=== PATIENT | female | born 1980 | race Caucasian/White ===

== ENCOUNTER 2023-06-19 20:14 | Emergency (ER) | payer OTHER, SELFPAY ==
[2023-06-19 20:21] VITALS: BP 128/72; PULSE 81; RESP 18; TEMP 37.2; O2SAT 98; BMI 25.0
[2023-06-19] MEDS: PROPARACAINE 0.5% OPHTH SOL 2 DROPS EYE-RIGHT (20:35)
[2023-06-19] MEDS: FLUORESCEIN 1 MG STRIP EYE-RIGHT (20:35)
--- NOTE | 2023-06-19 20:37 | PC.NURSE ---
Pt states she took 2 extra strength tylenol around 1700 today. Injury occurred 1500 today.
--- NOTE | 2023-06-19 20:58 | ED_ITS ---
HPI - General Adult General Chief complaint: Eye Problems Stated complaint: rt eye inj Time Seen by Provider: 06/19/23 20:47 Source: patient Mode of arrival: Ambulatory History of Present Illness HPI narrative: 42-year-old female. Does not wear glasses or contacts. Did have OH K greater than 10 years ago who is here for evaluation of an injury to her right eye. She states that she was bending over and accidentally got poked in the right eye with a plant. He has had pain and watering and irritation since then. Related Data Previous Rx's Medication Instructions Recorded erythromycin 5 mg/gram (0.5 %) eye 0.5 inch EYE-RIGHT TID #3.5 grams 06/19/23 ointment Allergies Allergy/AdvReac Type Severity Reaction Status Date / Time No Known Drug Allergies Allergy Verified 06/19/23 20:20 Review of Systems ENT Ears, Nose, Mouth, and Throat: Reports system reviewed and no additional complaints, except as documented Integumentary/Breasts Skin/Breast: Reports system reviewed and no additional complaints, except as documented Neurologic Neurologic: Reports system reviewed and no additional complaints, except as documented Patient History Social History Smoking Status: Never smoker Smoking Status: Never smoker alcohol intake frequency: holidays/special occasions only Substance Use Type: does not use Exam Initial Vital Signs Initial Vital Signs: Vital Signs Temperature 99 F 06/19/23 20:21 Pulse Rate 81 06/19/23 20:21 Respiratory Rate 18 06/19/23 20:21 Blood Pressure 128/72 06/19/23 20:21 Pulse Oximetry 98 06/19/23 20:21 Oxygen Delivery Method Room Air 06/19/23 20:21 Eyes Eyelids: eyelids normal Conjunctivae: conjunctivae normal Sclera: scleral abnormality right scleral injection diffuse; without foreign bodies and without hemorrhages Cornea: corneas abnormal on the right fluorescein used and abrasion central and fluorescein used Pupils: PERRL EOM: EOM intact bilaterally Skin General: no rashes or lesions noted Course Orders Ordered: Discontinued Medications Erythromycin (Erythromycin Ophth 1 Gm Oint) 1 applic EYE-RIGHT NOW ONE Stop: 06/19/23 20:59 Last Admin: 06/19/23 21:02 Dose: 1 applic Documented By: AB Fluorescein Sodium (Fluorescein 1 Mg Strip) 1 mg EYE-RIGHT NOW ONE Stop: 06/19/23 20:30 Last Admin: 06/19/23 20:35 Dose: 1 mg Documented By: AB Proparacaine HCl (Proparacaine 0.5% Ophth Gretchen) 2 drops EYE-RIGHT NOW ONE Stop: 06/19/23 20:29 Last Admin: 06/19/23 20:35 Dose: 1 drop Documented By: AB Vital Signs Vital signs: Vital Signs - 8 hr 06/19/23 20:21 06/19/23 21:05 Temperature 99 F Pulse Rate 81 74 Respiratory Rate 18 16 Blood Pressure 128/72 116/67 Pulse Oximetry 98 99 Oxygen Delivery Method Room Air Room Air Medical Decision Making MDM Narrative Medical decision making narrative: No foreign body noted with exam of the right eye. Pupils were round. Low susp icion for open globe. Does have findings consistent with a corneal abrasion in the mid visual axis of the right eye. Patient states that her symptoms are much better after the proparacaine. Will place on erythromycin ointment. She was given a dose here and a prescription was sent to the pharmacy of her choice. She was given return precautions and follow-up instructions. She expressed understanding and agreement. Discharge Plan Departure Patient Disposition: Home Clinical Impression: Corneal abrasion Instructions: DI for Corneal Abrasion Activity Restrictions/Additional Instructions: Use the erythromycin ointment 3 times a day as directed. Recommend that you contact your primary care doctor for a follow-up. Return to the emergency department for new or worsening symptoms. Prescriptions: New erythromycin 5 mg/gram (0.5 %) ointment 0.5 inch EYE-RIGHT TID Qty: 3.5 2RF Referrals: Kaci Sosa MD [Primary Care Provider] - Stand Alone Forms: Patient Portal/API
[2023-06-19] MEDS: ERYTHROMYCIN OPHTH 1 GM OINT 1 APPLIC EYE-RIGHT (21:02)
[2023-06-19 21:05] VITALS: BP 116/67; PULSE 74; RESP 16; O2SAT 99
== END 2023-06-19 21:09 | disposition home or self-care (01) ==
PROVIDERS: Emergency Provider Emergency Medicine; PCP Family Medicine
DX: S05.01XA Injury of conjunctiva and corneal abrasion without foreign body, right eye, initial encounter (principal); W44.8XXA Other foreign body entering into or through a natural orifice, initial encounter
CPT/HCPCS: 99282; 99283